=== PATIENT | male | born 1970 | race Caucasian/White ===

== ENCOUNTER 2023-05-11 07:32 | Emergency (ER) | payer OTHER, SELFPAY ==
[2023-05-11 07:34] VITALS: BP 136/83; PULSE 73; RESP 14; TEMP 36.1; O2SAT 97; BMI 30.9
[2023-05-11] MEDS: Fluorescein 1 MG STRIP 1 STRIP RIGHT EYE (09:16)
--- NOTE | 2023-05-11 14:14 | EDS_ITS ---
HPI History of Present Illness Chief Complaint: Eye Problem Narrative Narrative: Patient is a 52-year-old male who is presenting to the ER with chief complaint of red eye redness, yellow drainage and matting this morning, and some mild swelling to the right upper eyelid. Patient was cutting the grass on Friday, patient does not recall any type of foreign body, he was not poked with anything in the eye and Friday. Patient does not wear contacts or glasses. No blurred vision, loss of vision, or double vision. Patient has no loss of vision, blurred vision, double vision. Patient is having some intermittent tearing from the right eye. No other acute complaints at this time. Patient does not recall any type of chemical spray or irritant that could have irritated his right eye. This morning is the first day that his right eye was matted shut with crusted drainage when he woke up this morning. PFSH PFSH Medical History no medical history Home Medications tobramycin 0.3 % eye drops 3 drp RIGHT EYE Q4H PRN red eye/itching 7 days #5 mL 05/11/23 [Rx Last Taken Unknown] Allergy/AdvReac Type Severity Reaction Status Date / Time No Known Allergies Allergy Verified 05/11/23 07:33 Surgical History no surgical history Social History Smoking Status: Never smoker ROS ROS ED ROS Narrative REVIEW OF SYSTEMS: Unless otherwise stated in this report the patient's positive and negative responses for review of systems for constitutional, eyes, ENT, cardiovascular, respiratory, gastrointestinal, neurological, , musculoskel etal, and integument systems and related systems to the presenting problem are either stated in the history of present illness or were not pertinent or were negative for the symptoms and/or complaints related to the presenting medical problem. EXAM Physical Exam Narrative Exam Narrative: Vital signs reviewed and patient is not hypoxic. General: The patient appears well and in no apparent distress. Patient is resting comfortably on cart. Not toxic, lethargic, or listless. Skin: Warm, dry, no pallor noted. There is no rash noted. Head: Normocephalic, atraumatic Eye: Normal conjunctiva, no drainage, EOMI. PERRL. Patient's pupils are 4/2, equal, bilateral. Patient does have mild swelling to right upper eyelid, minimal redness to conjunctive of the right eye. Patient has no localized preseptal or preseptal cellulitis. No erythema around the eyes. Patient has no ecchymosis around the right eye. Patient has no drainage or dried mucous membranes noted to the right eye. Patient's left eye shows no signs of conjunctivitis, no swelling to the left upper or lower eyelid. Ears, Nose, Mouth, and Throat: oral mucosa is moist. Nares patent. Mouth without vesicles. Cardiovascular: Regular Rate and Rhythm, no murmurs, gallops, or rubs Respiratory: Patient is in no distress, no accessory muscle use, lungs are clear to auscultation, no wheezing, rales or rhonchi Musculoskeletal: The patient has full range of motion of all extremities and joints with no difficulty. Patient has no motor, no sensory deficits. Neurological: A&O x4, normal speech, no focal neurological deficits. Psychiatric: Cooperative Const Vital Signs: 05/11/23 07:34 Temperature 97 F L Temperature Source Temporal Pulse Rate 73 Respiratory Rate 14 Blood Pressure 136/83 H Blood Pressure Mean 100 Pulse Ox 97 Oxygen Delivery Method Room Air MDM MDM MDM Narrative Medical decision making narrative: Patient will be started on Tobrex. Patient also use Naphcon-A [id number]. Education done at bedside. Patient will follow-up with eye physician as well. No secondary signs of infection. Patient has no signs of foreign body to the right eye, no corneal abrasion, no other acute pathology noted. Procedure note: Patient had fluorescein stain done to the right eye, patient has no signs of corneal abrasion, no signs of ulcer, no other acute pathology noted. Upper and lower eyelid was everted, no foreign bodies noted. Patient tolerated procedure without difficulty. See nurses visual acuity. Discharge Plan Triage Chief Complaint: Eye Problem ED Provider: Mian Peng Dx/Rx/DC Orders Clinical Impression: Allergic conjunctivitis Instructions: Allergy Medicines: [id number], ED Conjunctivitis, Nonspecific, ED Conjunctivitis, Allergic Prescriptions: New tobramycin 0.3 % drops 3 drp RIGHT EYE Q4H PRN (Reason: red eye/itching) 7 Days Qty: 5 0RF Primary Care Provider: Jase Fontaine Referrals: Juan Cm MD [Med Staff - Active Staff] - Jase Fontaine PA [Primary Care Provider] - Activity Restrictions/Additional Instructions: Call your eye physician tomorrow and follow-up for complete eye exam and evaluation. Use [id number] Naphcon-A eyedrops to help with redness, itching and irritation. Use good handwashing as discussed. With any type of matting to the eyes, use a warm washcloth and wipe the matting/discharge from innner part of the outer eye next to your nose; and wipe it away to clean off the discharge and matting. Otherwise use ice and cold compresses to help with swelling and irritation Disposition Disposition: Home, Self Care Discharge Date/Time: 05/11/23 09:45
== END 2023-05-11 09:45 | disposition home or self-care (01) ==
PROVIDERS: Emergency Provider Emergency Medicine; PCP Physician Assistant; Visit Provider Emergency Medicine
DX: H10.11 Acute atopic conjunctivitis, right eye (principal)
CPT/HCPCS: 99283

== ENCOUNTER → 2024-03-01 | Outpatient (CLI) | payer OTHER, SELFPAY ==
[2024-03-01 11:10] LABS: Vitamin D,25 Hydroxy 33.7 ng/mL
[2024-03-01 11:26] LABS: ALB/GLOB Ratio 1.2 RATIO (0.9-2.4); AST(SGOT) 23 U/L (15-37); Alanine Aminotransfer ALT/SGPT 39 U/L (16-61); Alkaline Phosphatase 112 U/L (45-117); Anion Gap 5 (5-15); BUN 14 mg/dL (7-18); BUN/Creat Ratio 13.3 RATIO (10-20); Calcium,Total 9.5 mg/dL (8.5-10.1); Chloride 103 mmol/L (98-107); Creatinine, Serum 1.05 mg/dL (0.70-1.30); EST Glomerular Filtration Rate 79 mL/min (>60); Est Glom Filt Rate - Afr Amer 95 mL/min (>60); Globulin 3.3 g/dL (2.2-4.2); Glucose 303 mg/dL (74-106); Potassium 3.9 mmol/L (3.5-5.1); Protein, Total 7.3 g/dL (6.4-8.2); Sodium Level 134 mmol/L (136-145); Thyroid Stim Hormone (TSH) 1.43 uIU/mL (0.358-3.74)
== END | disposition home or self-care (01) ==
LOC: LAB.FUTURE 08:09
PROVIDERS: PCP Physician Assistant; Visit Provider Family Medicine
DX: F32.9 Major depressive disorder, single episode, unspecified (principal); I10 Essential (primary) hypertension; R53.83 Other fatigue; Z12.5 Encounter for screening for malignant neoplasm of prostate
CPT/HCPCS: 36415; 80053; 82306; 84443

== ENCOUNTER → 2024-05-28 | Outpatient (CLI) | payer OTHER, SELFPAY ==
[2024-05-28 12:29] LABS: Hemoglobin A1c 6.3 % (3.8-5.6)
== END | disposition home or self-care (01) ==
LOC: MFPLAB 08:16
PROVIDERS: PCP Physician Assistant; Visit Provider Family Medicine
DX: E11.9 Type 2 diabetes mellitus without complications (principal)
CPT/HCPCS: 36415; 83036